=== PATIENT | female | born 1995 | race Caucasian/White ===

== ENCOUNTER 2016-11-22 21:57 | Emergency (ER) | payer BC ==
[2016-11-22] MEDS ORDERED: ONDANSETRON 4 MG/2 ML VIAL ONE (22:04)
--- NOTE | 2016-11-22 22:10 | CPEKG ---
Heart Rate: 90 RR Interval: 667 P-R Interval: 152 QRSD Interval: 88 QT Interval: 412 QTC Interval: 504 P [place]: 78 QRS [place]: 77 T Wave [place]: 48 EKG Severity - ABNORMAL ECG - EKG Impression: SINUS RHYTHM EKG Impression: PVC's EKG Impression: PROLONGED QT INTERVAL Electronically Signed By: Edgar Umana 23-Nov-2016 01:36:34
[2016-11-22 22:13] VITALS: TEMP 97.9
[2016-11-22] MEDS ORDERED: NS 1,000 ML IV ONE ×2 (22:14→23:17)
[2016-11-22] MEDS ORDERED: ONDANSETRON 4 MG/2 ML VIAL IVP ONE (22:14)
[2016-11-22 22:28] LABS: % IMMATURE GRANULYOCYTES 0.5 % (0.0-1.1); ABSOLUTE IMMATURE GRANULOCYTES 0.06 10^3/uL (0.00-0.10); ADD DIFF? NO; ADD MORPH? NO; ADD SCAN? NO; ATYPICAL LYMPHOCYTE FLAG 0 (0-99); FRAGMENT RBC FLAG 0 (0-99); HEMOGLOBIN 13.2 g/dL (12.6-16.3); LEFT SHIFT FLG 0 (0-99); LIPEMIA HEMOLYSIS FLAG 80 (0-99); MEAN CELL HEMOGLOBIN 28.1 pg (27.9-34.1); MEAN CELL VOLUME 85.1 fL (81.5-99.8); PLATELET CLUMPS FLAG 0 (0-99); PLATELET COUNT 300 10^3/uL (150-400); RED CELL DISTRIBUTION WIDTH 13.7 % (11.5-15.2)
[2016-11-22 22:40] LABS: ANION GAP 20 mEq/L (8-16); CALCIUM 11.1 mg/dL (8.5-10.4); CARBON DIOXIDE 17 mEq/l (22-31); CHLORIDE 103 mEq/L (97-110); CREATININE 0.9 mg/dL (0.6-1.0); GLOMERULAR FILTRATION RATE > 60; GLUCOSE 93 mg/dL (70-100); POTASSIUM 4.2 mEq/L (3.5-5.2); SODIUM 140 mEq/L (134-144)
[2016-11-22 22:57] LABS: CK-MB INTERPRETATION NEGATIVE (NEGATIVE)
--- NOTE | 2016-11-23 00:02 | EDPHY ---
H & P Stated Complaint: ironman bigeminal pvc abd pain and nausea HPI/ROS: Chief Complaint: Leg cramping, abdominal pain HPI: 21-year-old female finished the iron man race this evening. Patient has had leg cramping, abdominal pain and nausea. Patient was noted by EMS to have some PVCs on her rhythm strip. Patient denies any chest pain or shortness of breath. Has not had any syncope. No cough. Some nausea but no vomiting. ROS: 10 point Review of Systems is negative except as noted in the HPI. PMH: None Social History: No smoking, no alcohol, no recreational drug use Family History: non-contributory Physical Exam: Gen: Awake, Alert, No Distress HEENT: Nose: no rhinorrhea Eyes: PERRLA, EOMI Mouth: Moist mucosa Neck: Supple, no JVD Chest: nontender, lungs clear to auscultation Heart: S1, S2 normal, no murmur Abd: Soft, non-tender, no guarding Back: no CVA tenderness, no midline tenderness Ext: no edema, non-tender Skin: no rash Neuro: CN II-XII intact, Sensation grossly intact, Strength 5/5 in bilateral upper and lower extremities - Personal History Current Tetanus/Diphtheria Vaccine: Yes Current Tetanus Diphtheria and Acellular Pertussis (TDAP): Yes - Medical/Surgical History Hx Asthma: No Hx Chronic Respiratory Disease: No Hx Diabetes: No Hx Cardiac Disease: No Hx Renal Disease: No Hx Cirrhosis: No Hx Alcoholism: No Hx HIV/AIDS: No Hx Splenectomy or Spleen Trauma: No Other PMH: tonsils - Social History Smoking Status: Never smoked Constitutional: Initial Vital Signs Temperature (C) 36.6 C 11/22/16 22:11 Heart Rate 83 11/22/16 22:11 Respiratory Rate 16 11/22/16 22:11 Blood Pressure 119/79 11/22/16 22:11 O2 Sat (%) 97 11/22/16 22:11 O2 Delivery Mode Room Air Allergies/Adverse Reactions: No Known Allergies Allergy (Unverified 11/22/16 22:10) Home Medications: Medication Instructions Recorded NK [No Known Home Meds] 11/22/16 Medical Decision Making - Diagnostics EKG Interpretation: ECG time 10:07 p.m. sinus rhythm with a rate of 90, normal axis, frequent unifocal PVCs. No acute ST or T-wave changes. ED Course/Re-evaluation: CPK is trending down. Patient is tolerating p.o.. She is feeling improved. Will discharge with instructions to take acetaminophen. I would not take ibuprofen given the kidney FX. She will follow up with physician for any concerns. - Data Points Laboratory Results: Laboratory Results 11/22/16 22:02 11/22/16 23:59 11/22/16 11/22/16 11/22/16 23:59 22:02 22:02 WBC 11.66 10^3/uL H 10^3/uL (3.80-9.50) RBC 4.70 10^6/uL 10^6/uL (4.18-5.33) Hgb 13.2 g/dL g/dL (12.6-16.3) POC Hgb Hct 40.0 % % (38.0-47.0) POC Hct MCV 85.1 fL fL (81.5-99.8) MCH 28.1 pg pg (27.9-34.1) MCHC 33.0 g/dL g/dL (32.4-36.7) RDW 13.7 % % (11.5-15.2) Plt Count 300 10^3/uL 10^3/uL (150-400) MPV 10.0 fL fL (8.7-11.7) Neut % (Auto) 83.5 % H % (39.3-74.2) Lymph % (Auto) 9.5 % L % (15.0-45.0) [place] % (Auto) 6.3 % % (4.5-13.0) Eos % (Auto) 0.0 % L % (0.6-7.6) Baso % (Auto) 0.2 % L % (0.3-1.7) Nucleat RBC Rel Count 0.0 % % (0.0-0.2) Absolute Neuts (auto) 9.73 10^3/uL H 10^3/uL (1.70-6.50) Absolute Lymphs (auto) 1.11 10^3/uL 10^3/uL (1.00-3.00) Absolute Monos (auto) 0.74 10^3/uL 10^3/uL (0.30-0.80) Absolute Eos (auto) 0.00 10^3/uL L 10^3/uL (0.03-0.40) Absolute Basos (auto) 0.02 10^3/uL 10^3/uL (0.02-0.10) Absolute Nucleated RBC 0.00 10^3/uL 10^3/uL (0-0.01) Immature Gran % 0.5 % % (0.0-1.1) Immature Gran # 0.06 10^3/uL 10^3/uL (0.00-0.10) POC Sodium Sodium 140 mEq/L mEq/L 140 mEq/L mEq/L (134-144) (134-144) POC Potassium Potassium 3.8 mEq/L mEq/L 4.2 mEq/L mEq/L (3.5-5.2) (3.5-5.2) POC Chloride Chloride 112 mEq/L H mEq/L 103 mEq/L mEq/L (97-110) (97-110) Carbon Dioxide 16 mEq/l L mEq/l 17 mEq/l L mEq/l (22-31) (22-31) Anion Gap 12 mEq/L mEq/L 20 mEq/L H mEq/L (8-16) (8-16) POC BUN BUN 23 mg/dL mg/dL 27 mg/dL H mg/dL (7-23) (7-23) Creatinine 0.8 mg/dL mg/dL 0.9 mg/dL mg/dL (0.6-1.0) (0.6-1.0) POC Creatinine Estimated GFR > 60 > 60 Glucose 98 mg/dL mg/dL 93 mg/dL mg/dL (70-100) (70-100) POC Glucose Calcium 8.6 mg/dL D mg/dL 11.1 mg/dL H mg/dL (8.5-10.4) (8.5-10.4) Phosphorus 5.2 mg/dL H mg/dL (2.5-4.5) Magnesium 2.0 mg/dL mg/dL (1.6-2.3) Creatine Kinase 536 IU/L H IU/L 683 IU/L H IU/L (0-156) (0-156) CK-MB (CK-2) Fraction 9.74 ng/mL H ng/mL 12.20 ng/mL H ng/mL (0-3.19) (0-3.19) CK-MB (CK-2) % 1.8 % % 1.8 % % (0.0-4.0) (0.0-4.0) Creatine Kinase Interp NEGATIVE NEGATIVE (NEGATIVE) (NEGATIVE) 11/22/16 21:58 WBC RBC Hgb POC Hgb 14.3 gm/dL gm/dL (12.6-16.3) Hct POC Hct 42 % % (38-47) MCV MCH MCHC RDW Plt Count MPV Neut % (Auto) Lymph % (Auto) [place] % (Auto) Eos % (Auto) Baso % (Auto) Nucleat RBC Rel Count Absolute Neuts (auto) Absolute Lymphs (auto) Absolute Monos (auto) Absolute Eos (auto) Absolute Basos (auto) Absolute Nucleated RBC Immature Gran % Immature Gran # POC Sodium 142 mEq/L mEq/L (134-144) Sodium POC Potassium 3.8 mEq/L mEq/L (3.3-5.0) Potassium POC Chloride 104 mEq/L mEq/L (97-110) Chloride Carbon Dioxide Anion Gap POC BUN 28 mg/dL H mg/dL (7-23) BUN Creatinine POC Creatinine 1.0 mg/dL mg/dL (0.6-1.0) Estimated GFR Glucose POC Glucose 96 mg/dL mg/dL (70-100) Calcium Phosphorus Magnesium Creatine Kinase CK-MB (CK-2) Fraction CK-MB (CK-2) % Creatine Kinase Interp Medications Given: Discontinued Medications Sodium Chloride (Ns) 1,000 mls @ 0 mls/hr IV ONCE ONE PRN Reason: Wide Open Stop: 11/22/16 22:15 Last Admin: 11/22/16 22:15 Dose: 1,000 mls Sodium Chloride (Ns) 1,000 mls @ 0 mls/hr IV ONCE ONE PRN Reason: Wide Open Stop: 11/22/16 23:18 Last Admin: 11/22/16 23:27 Dose: 1,000 mls Ondansetron HCl (Zofran) 4 mg IVP EDNOW ONE Stop: 11/22/16 22:15 Last Admin: 11/22/16 22:16 Dose: 4 mg Point of Care Test Results: 11/22/16 21:58 POC Sodium 142 POC Potassium 3.8 POC Chloride 104 POC BUN 28 H POC Creatinine 1.0 POC Glucose 96 Departure - Departure Disposition: Home, Routine, Self-Care Clinical Impression: Rhabdomyolysis, Dehydration, PVCs (premature ventricular contractions) Condition: Good Instructions: Dehydration (ED), Rhabdomyolysis (ED), Premature Ventricular Contractions (ED) Additional Instructions: Continue to drink plenty of fluids and replace your electrolytes. Do not take ibuprofen for 48 hours. May take acetaminophen as needed for aches and pains. Follow up with her physician in 2-3 days if you're not feeling improved. Return to the emergency department for any concerns. Referrals: [facility] [Other] - As per Instructions
[2016-11-23 00:25] LABS: ANION GAP 12 mEq/L (8-16); CALCIUM 8.6 mg/dL (8.5-10.4); CARBON DIOXIDE 16 mEq/l (22-31); CHLORIDE 112 mEq/L (97-110); CREATININE 0.8 mg/dL (0.6-1.0); GLOMERULAR FILTRATION RATE > 60; GLUCOSE 98 mg/dL (70-100); POTASSIUM 3.8 mEq/L (3.5-5.2); SODIUM 140 mEq/L (134-144)
[2016-11-23 00:41] VITALS: BP 116/69; PULSE 93; RESP 18; O2SAT 97
[2016-11-23 00:42] LABS: CK-MB INTERPRETATION NEGATIVE (NEGATIVE)
[2016-11-23 00:45] LABS: CREATINE KINASE-MB FRACTION 9.74 ng/mL (0-3.19)
== END 2016-11-23 00:41 | disposition home or self-care (01) ==
DX: I49.3 Ventricular premature depolarization (principal); M62.82 Rhabdomyolysis; E86.0 Dehydration
CPT/HCPCS: 82947-QW; 96374; J2405